=== PATIENT | male | born 1995 | race African-American/Black ===

== ENCOUNTER 2020-02-03 00:32 | Emergency (ER) | payer MEDICAID ==
[2020-02-03] MEDS ORDERED: Acetaminophen 500 MG Tab PO ONE (00:54)
[2020-02-03] MEDS ORDERED: Ibuprofen 800 MG Tab PO ONE (00:56)
--- NOTE | 2020-02-03 00:59 | EDM.PDOC ---
ED HPI GENERAL MEDICAL PROBLEM - General Stated Complaint: CHEST PAIN Time Seen by Provider: 02/03/20 00:35 Source of Information: Reports: Patient History Limitations: Reports: No Limitations - History of Present Illness INITIAL COMMENTS - FREE TEXT/NARRATIVE: Patient presented to the Ed because of chest wall pain. He apparently bumped his chest on the metal pole. He sustained abrasion over the sternal area and c/o left rib pain. Chest Pain Score (Numeric/FACES): 8 - Related Data Allergies Allergy/AdvReac Type Severity Reaction Status Date / Time No Known Allergies Allergy Verified 02/03/20 01:12 Home Meds: Home Meds Ibuprofen 800 mg PO Q8H PRN #30 tablet 02/03/20 [Rx] ED ROS GENERAL - Review of Systems Review Of Systems: See Below Constitutional: Reports: No Symptoms HEENT: Reports: No Symptoms Respiratory: Reports: No Symptoms Cardiovascular: Reports: Chest Pain Endocrine: Reports: No Symptoms GI/Abdominal: Reports: No Symptoms : Reports: No Symptoms Musculoskeletal: Reports: No Symptoms Skin: Reports: Bruising ED EXAM, GENERAL - Physical Exam Exam: See Below Exam Limited By: No Limitations General Appearance: Alert, No Apparent Distress Eye Exam: Bilateral Eye: PERRL Ears: Normal External Exam, Normal Canal Nose: Normal Inspection, Normal Mucosa, No Blood Throat/Mouth: Normal Inspection, Normal Lips, Normal Teeth Head: Atraumatic, Normocephalic Neck: Normal Inspection, Supple, Non-Tender, Full Range of Motion Respiratory/Chest: No Respiratory Distress, Lungs Clear, Normal Breath Sounds, Other (chest wall tenderness-left) Cardiovascular: Normal Peripheral Pulses, Regular Rate, Rhythm, No Edema GI/Abdominal: Normal Bowel Sounds, Soft, Non-Tender, No Organomegaly Back Exam: Normal Inspection, Full Range of Motion Extremities: Normal Inspection, Normal Range of Motion, Non-Tender Neurological: Alert, Oriented, CN II-XII Intact, Normal Cognition, Normal Gait Psychiatric: Normal Affect, Normal Mood Course - Vital Signs Text/Narrative:: Ibuprofen 800 mg with tylenol 1000 mg PO x1 Last Recorded V/S: Last Vital Signs Temp 36.7 C 02/03/20 01:47 Pulse 76 02/03/20 01:47 Resp 16 02/03/20 01:47 BP 105/62 02/03/20 01:47 Pulse Ox 97 02/03/20 01:47 - Orders/Labs/Meds Meds: Medications Discontinued Medications Generic Name Dose Route Start Last Admin Trade Name Ben PRN Reason Stop Dose Admin Acetaminophen 1,000 mg 02/03/20 00:54 02/03/20 01:03 Tylenol Extra Strength PO 02/03/20 00:55 1,000 mg ONETIME ONE Administration Ibuprofen 800 mg 02/03/20 00:56 02/03/20 01:03 Motrin PO 02/03/20 00:57 800 mg ONETIME ONE Administration Departure - Departure Time of Disposition: 01:30 Disposition: Home, Self-Care 01 Condition: Good Clinical Impression: Contusion of rib on left side, Chest wall contusion - Discharge Information Prescriptions: Ibuprofen 800 mg PO Q8H PRN #30 tablet PRN Reason: Pain Instructions: Rib Contusion Referrals: PCP,None [Primary Care Provider] - Forms: ED Department Discharge Additional Instructions: Please read discharge instructions on chest and rib contusion Aply ice 3 times daily Take ibuprofen 800 mg with tylenol 1000 mg every 8 hours as needed for pain We will call you if there's any change on your xray reading Follow up as needed Sepsis Event Note (ED) - Focused Exam Vital Signs: Vital Signs Temp Pulse Resp BP Pulse Ox 02/03/20 01:47 36.7 C 76 16 105/62 97 02/03/20 00:35 36.8 C 91 16 113/70 100
--- NOTE | 2020-02-03 10:14 | CR ---
INDICATION: Chest and rib injury. LEFT RIBS WITH CHEST: PA view of the chest with 9 views of the left ribs were obtained 02/03/20 - no comparison. The heart and mediastinum are unremarkable. An active infiltrate, effusion, contusion, or pneumothorax was not identified. A displaced fracture site or other significant abnormality was not identified. IMPRESSION: No acute process - no definite active disease. MTDD
== END 2020-02-03 02:13 | disposition home or self-care (01) ==
LOC: FB.ED 00:32
DX: S20.212A Contusion of left front wall of thorax, initial encounter (principal); W22.8XXA Striking against or struck by other objects, initial encounter
CPT/HCPCS: 71101; 99284; A9270

== ENCOUNTER 2020-04-02 21:38 | Emergency (ER) | payer MEDICAID ==
--- NOTE | 2020-04-02 22:00 | EDM.PDOC ---
ED HPI GENERAL MEDICAL PROBLEM - General Chief Complaint: Respiratory Problem Stated Complaint: SOB Time Seen by Provider: 04/02/20 21:50 Source of Information: Reports: Patient History Limitations: Reports: No Limitations - History of Present Illness INITIAL COMMENTS - FREE TEXT/NARRATIVE: has chest tightness and difficulty breathing for 3 days . denies that it is asthma symptoms , no fever no chill s states it progressively got worse till had had to come to the ER today Works in [employer] , has high probabillity of contacting in [place] he has lost his sense of taste and smell Onset: Today Onset Date: 04/02/20 Duration: Getting Worse Location: Reports: Chest Quality: Reports: Ache, Dull Severity: Moderate Improves with: Reports: None Worsens with: Reports: None Associated Symptoms: Reports: Chest Pain, Malaise - Related Data Allergies Allergy/AdvReac Type Severity Reaction Status Date / Time No Known Allergies Allergy Verified 02/03/20 01:12 Home Meds: Home Meds Ibuprofen 800 mg PO Q8H PRN #30 tablet 02/03/20 [Rx] Azithromycin [Zithromax] 500 mg PO DAILY #5 tab 04/02/20 [Rx] Zinc Gluconate [Zinc] 100 mg PO DAILY #60 tablet 04/02/20 [Rx] guaiFENesin [Mucinex] 600 mg PO BID #30 tab.er.12h 04/02/20 [Rx] Past Medical History Musculoskeletal History: Reports: Other (See Below) Other Musculoskeletal History: Sprained left foot Psychiatric History: Reports: Anxiety, Depression Social & Family History - Caffeine Use Caffeine Use: Reports: Energy Drinks, Tea ED ROS GENERAL - Review of Systems Review Of Systems: See Below Constitutional: Reports: No Symptoms, Chills, Malaise, Weakness. Denies: Fever HEENT: Reports: No Symptoms Respiratory: Reports: Shortness of Breath, Wheezing Cardiovascular: Reports: No Symptoms Endocrine: Reports: No Symptoms GI/Abdominal: Reports: No Symptoms Musculoskeletal: Reports: No Symptoms Skin: Reports: No Symptoms Neurological: Reports: No Symptoms ED EXAM, GENERAL - Physical Exam Exam: See Below Exam Limited By: No Limitations General Appearance: Alert, WD/WN, No Apparent Distress Eye Exam: Bilateral Eye: EOMI Ear Exam: Bilateral Ear: TM Dull Nose: Normal Mucosa Throat/Mouth: Normal Oropharynx Head: Atraumatic, Normocephalic Neck: Supple, Non-Tender Cardiovascular: Normal Peripheral Pulses, Regular Rate, Rhythm GI/Abdominal: Soft, Non-Tender Back Exam: Full Range of Motion Extremities: Normal Range of Motion Course - Vital Signs Last Recorded V/S: Last Vital Signs Temp 36.6 C 04/02/20 21:40 Pulse Resp BP Pulse Ox - Orders/Labs/Meds Orders: Active Orders 24 hr Category Date Time Status Sodium Chloride 0.9% [Saline Flush] Med 04/02/20 22:26 Active 10 ml FLUSH ASDIRECTED PRN Medication Orders Sodium Chloride (Saline Flush) 10 ml FLUSH ASDIRECTED PRN PRN Reason: Keep Vein Open Last Admin: 04/02/20 22:26 Dose: 10 ml Documented by: J CARLOS Labs: Laboratory Tests 04/02/20 Range/Units 21:55 SARS-CoV-2 RNA (SHAUNNA) Positive H (NEGATIVE) Meds: Medications Generic Name Dose Route Start Last Admin Trade Name Freq PRN Reason Stop Dose Admin Sodium Chloride 10 ml 04/02/20 22:26 04/02/20 22:26 Saline Flush FLUSH 10 ml ASDIRECTED PRN Administration Keep Vein Open Discontinued Medications Generic Name Dose Route Start Last Admin Trade Name Freq PRN Reason Stop Dose Admin Azithromycin 500 mg 04/02/20 22:12 04/02/20 22:27 Zithromax PO 04/02/20 22:13 500 mg ONETIME ONE Administration Dexamethasone 8 mg 04/02/20 22:11 04/02/20 22:26 Dexamethasone IVPUSH 04/02/20 22:12 8 mg ONETIME ONE Administration Departure - Departure Time of Disposition: 22:30 Disposition: Home, Self-Care 01 Clinical Impression: COVID-19, Acute bronchitis - Discharge Information *PRESCRIPTION DRUG MONITORING PROGRAM REVIEWED*: Not Applicable *COPY OF PRESCRIPTION DRUG MONITORING REPORT IN PATIENT MARTHA: Not Applicable Prescriptions: guaiFENesin [Mucinex] 600 mg PO BID #30 tab.er.12h Zinc Gluconate [Zinc] 100 mg PO DAILY #60 tablet Azithromycin [Zithromax] 500 mg PO DAILY #5 tab Instructions: COVID-19 Frequently Asked Questions, Acute Bronchitis, Adult, [id number] Referrals: PCP,None [Primary Care Provider] - Forms: ED Department Discharge Additional Instructions: 1) Quarantine for full 14 day s 2) Others at home need to have screening test done 3) If symptoms get worse call the clinic for further advise Sepsis Event Note (ED) - Focused Exam Vital Signs: Vital Signs Temp 04/02/20 21:40 36.6 C - My Orders Last 24 Hours: My Active Orders 04/02/20 22:26 Sodium Chloride 0.9% [Saline Flush] 10 ml FLUSH ASDIRECTED PRN - Assessment/Plan Last 24 Hours: My Active Orders 04/02/20 22:26 Sodium Chloride 0.9% [Saline Flush] 10 ml FLUSH ASDIRECTED PRN
[2020-04-02] MEDS ORDERED: Dexamethasone 4 MG/ML 5 ML MDV IVPUSH ONE (22:11)
[2020-04-02] MEDS ORDERED: Azithromycin 500 MG Tab PO ONE (22:12)
[2020-04-02] MEDS ORDERED: Sodium Chloride 0.9% 10 ML Syringe FLUSH PRN (22:26)
== END 2020-04-02 23:50 | disposition home or self-care (01) ==
LOC: FB.ED 21:38
DX: U07.1 COVID-19 (principal); J20.8 Acute bronchitis due to other specified organisms
CPT/HCPCS: 96374; 99284-25; A9270-GY; J1100; U0002

== ENCOUNTER → 2020-06-25 21:45 | Emergency (ER) | payer MEDICAID ==
--- NOTE | 2020-06-25 23:04 | EDM.PDOCBH ---
ED HPI GENERAL MEDICAL PROBLEM - General Chief Complaint: Behavioral/Psych Stated Complaint: Depressed, Cut self Time Seen by Provider: 06/25/20 22:10 Source of Information: Reports: Patient History Limitations: Reports: No Limitations - History of Present Illness INITIAL COMMENTS - FREE TEXT/NARRATIVE: presents complaining he is depressed . has a lot of stress that has been ongoing , lost his job , was affected with COVID . Ended up cutting himself. Denies being suicidal states he has never been on antidepressant Was on Adderall for ADHD but stopped taking the medication about 3-4 yrs ago Feels he needs it currently moved from the [place] to live her with sister States he misses his family in the [place] Onset: Today Duration: Waxing/Waning Location: Reports: Generalized Quality: Reports: Ache Improves with: Reports: None Worsens with: Reports: None Associated Symptoms: Reports: No Other Symptoms - Related Data Allergies Allergy/AdvReac Type Severity Reaction Status Date / Time No Known Allergies Allergy Verified 06/25/20 22:09 Home Meds: Home Meds Dextroamphetamine/Amphetamine [Adderall 20 mg Tablet] 20 mg PO DAILY #30 tablet 06/25/20 [Rx] Past Medical History Musculoskeletal History: Reports: Other (See Below) Other Musculoskeletal History: Sprained left foot Psychiatric History: Reports: Anxiety, Depression - Infectious Disease History Infectious Disease History: Reports: Other (See Below) Other Infectious Disease History: COVID positive--March 2020. Social & Family History - Caffeine Use Caffeine Use: Reports: Energy Drinks, Tea ED ROS GENERAL - Review of Systems Review Of Systems: Comprehensive ROS is negative, except as noted in HPI. ED EXAM, BEHAVIORAL HEALTH - Physical Exam Exam: See Below Exam Limited By: No Limitations General Appearance: Alert, WD/WN, No Apparent Distress Nose: Normal Inspection Throat/Mouth: Normal Inspection Head: Atraumatic, Normocephalic Neck: Supple, Non-Tender Respiratory/Chest: Lungs Clear, Normal Breath Sounds Cardiovascular: Normal Peripheral Pulses, Regular Rate, Rhythm GI/Abdominal: Soft, Non-Tender Back Exam: Full Range of Motion Extremities: Normal Inspection, Normal Range of Motion, Normal Capillary Refill Neurological: Alert, Normal Mood/Affect, CN II-XII Intact Psychiatric: Alert, Depressed Mood, Flat Affect, Withdrawn. No: Agitated, Disoriented, Inattentive, Poor Eye Contact, Homicidal Thoughts, Suicidal Plan, Suicidal Thoughts, Auditory Hallucinations, Visual Hallucinations Skin Exam: Warm, Dry, Intact, Normal color, No rash COURSE, BEHAVIORAL HEALTH COMP - Course Vital Signs: Last Vital Signs Temp 36.9 C 06/25/20 22:05 Pulse 89 06/25/20 22:05 Resp 18 06/25/20 22:05 BP 144/89 H 06/25/20 22:05 Pulse Ox 99 06/25/20 22:05 Re-Assessment/Re-Exam: pt seemed rational ans was able to identify cause of problems will restart ADHD medication , FU with PCP pt is not on antidepressants, has never been on Departure - Departure Time of Disposition: 22:50 Disposition: Home, Self-Care 01 Condition: Fair Clinical Impression: ADHD, predominantly hyperactive type, Self-harm - Discharge Information *PRESCRIPTION DRUG MONITORING PROGRAM REVIEWED*: Not Applicable *COPY OF PRESCRIPTION DRUG MONITORING REPORT IN PATIENT MARTHA: Not Applicable Prescriptions: Dextroamphetamine/Amphetamine [Adderall 20 mg Tablet] 20 mg PO DAILY #30 tablet Instructions: Living With Attention Deficit Hyperactivity Disorder, Attention Deficit Hyperactivity Disorder, Adult Referrals: PCP,None [Primary Care Provider] - Forms: ED Department Discharge Additional Instructions: Make appointment to follow up with a primary care provider Sepsis Event Note (ED) - Focused Exam Vital Signs: Vital Signs Temp Pulse Resp BP Pulse Ox 06/25/20 22:05 36.9 C 89 18 144/89 H 99
== END | disposition home or self-care (01) ==
LOC: FB.ED 21:45
DX: F90.1 Attention-deficit hyperactivity disorder, predominantly hyperactive type (principal); Z79.899 Other long term (current) drug therapy
CPT/HCPCS: 99284

== ENCOUNTER 2020-10-18 17:13 | Emergency (ER) | payer MEDICAID ==
--- NOTE | 2020-10-18 17:21 | EDM.PDOCBH ---
ED HPI GENERAL MEDICAL PROBLEM - General Stated Complaint: ?? Time Seen by Provider: 10/18/20 17:13 Source of Information: Reports: Patient History Limitations: Reports: No Limitations - History of Present Illness INITIAL COMMENTS - FREE TEXT/NARRATIVE: c/o SI pt went to clinic, saw Dr Nayak and social work therapist, said he was suicidal for the past month and wanted to be admitted no beh health admission in past pt had a knife which he gave to EMS who brought him to ED, said he did not feel safe Dr Nayak spoke with [facility] who said that they have beds open and that pt would need to get psych labs done, Dr Nayak sent pt by EMS from clinic to ED pt has h/o ADHD, has done self cutting in past he had COVID 7m ago with a positive COVID test on 04-02-20 last fill of Adderall 20 mg #30 was 06-25-[address] Russell pt reports he cut his LUE in [place] yestesrday after getting in an argument says he has been thinking about a lot, "under a lot of stress", that he had 3 friends that (one by intentional OD, one by unintentional OD, one in [place] under mysterious circumstances), his GM has he went to in [facility], left the city 8m ago and stayed with his sister locally, got his own apartment 5m ago, works at [employer], does not like to work 3p to 11p, says it is too much responsibility to close, that he has to follow a lot of steps and then keep the verdugo to the next day, that he loses his own keys and does not trust himself he used Ecstasy in past, stopped age 19, stopped street drugs age 19, occasional THC, occasional alc, smokes cigs not worked with counselor in past, no previous behavioral health admissions - Related Data Allergies Allergy/AdvReac Type Severity Reaction Status Date / Time No Known Allergies Allergy Verified 06/25/20 22:09 Home Meds: Home Meds Dextroamphetamine/Amphetamine [Adderall 20 mg Tablet] 20 mg PO DAILY #30 tablet 06/25/20 [Rx] Past Medical History Musculoskeletal History: Reports: Other (See Below) Other Musculoskeletal History: Sprained left foot. Psychiatric History: Reports: ADHD, Anxiety, Depression - Infectious Disease History Infectious Disease History: Reports: Other (See Below) Other Infectious Disease History: COVID positive--March 2020. Social & Family History - Caffeine Use Caffeine Use: Reports: Energy Drinks, Tea ED ROS GENERAL - Review of Systems Review Of Systems: See Below Constitutional: Reports: No Symptoms HEENT: Reports: No Symptoms Respiratory: Reports: No Symptoms Cardiovascular: Reports: No Symptoms Endocrine: Reports: No Symptoms GI/Abdominal: Reports: No Symptoms : Reports: No Symptoms Musculoskeletal: Reports: No Symptoms Skin: Reports: No Symptoms Neurological: Reports: No Symptoms Psychiatric: Reports: No Symptoms Hematologic/Lymphatic: Reports: No Symptoms Immunologic: Reports: No Symptoms ED EXAM, BEHAVIORAL HEALTH - Physical Exam Exam: See Below Exam Limited By: No Limitations General Appearance: Alert, WD/WN Eye Exam: Bilateral Eye: EOMI, PERRL Ears: Hearing Grossly Normal Nose: Normal Inspection, Normal Mucosa, No Blood Throat/Mouth: Normal Inspection, Normal Lips, Normal Voice, No Airway Compromise Head: Atraumatic, Normocephalic Neck: Normal Inspection, Supple, Non-Tender, Full Range of Motion. No: Lymph adenopathy (R), Lymphadenopathy (L) Respiratory/Chest: No Respiratory Distress, Lungs Clear, Normal Breath Sounds, No Accessory Muscle Use Cardiovascular: Regular Rate, Rhythm, No Edema, No Murmur GI/Abdominal: Soft, Non-Tender, No Distention Extremities: Normal Inspection, Normal Range of Motion, Non-Tender Neurological: Alert, CN II-XII Intact, Normal Gait, No Motor/Sensory Deficits Psychiatric: Alert. No: Other (pt says he thinks re dying, no plan, loquacious, limited insight, no HI) Skin Exam: Warm, Dry, Other (3 superficial cuts on outside of right forearm, one old deeper cut with 4mm wide scar from age 19) COURSE, BEHAVIORAL HEALTH COMP - Course Vital Signs: Last Vital Signs Temp 36.7 C 10/18/20 17:25 Pulse 70 10/18/20 17:25 Resp 16 10/18/20 17:25 BP 115/80 10/18/20 17:25 Pulse Ox 95 10/18/20 17:25 Orders, Labs, Meds: Active Orders 24 hr Category Date Time Status DRUG SCREEN, URINE ALERE [URCHEM] Stat Lab 10/18/20 17:16 Ordered UA W/MICROSCOPIC [URIN] Stat Lab 10/18/20 17:16 Ordered Laboratory Tests 10/18/20 10/18/20 10/18/20 Range/Units 17:27 17:27 17:27 WBC 5.0 (3.2-10.1) x10-3/uL RBC 5.67 (3.90-5.90) x10(6)uL Hgb 17.2 (12.9-17.7) g/dL Hct 50.7 H (38.3-50.1) % MCV 89.5 (80.8-98.7) fL MCH 30.4 (27.0-33.3) pg MCHC 34.0 (28.7-35.3) g/dL RDW 13.9 (12.4-15.0) % Plt Count 206 (117-477) x10(3)uL MPV 9.5 (6.7-11.0) fL Neut % (Auto) 42.7 (40.3-71.8) % Lymph % (Auto) 34.0 (15.8-45.3) % [place] % (Auto) 15.2 (5.5-15.2) % Eos % (Auto) 7.6 H (0.1-6.8) % Baso % (Auto) 0.5 (0.3-3.8) % Neut # (Auto) 2.1 (1.7-6.9) x10-3/uL Lymph # (Auto) 1.7 (0.5-4.5) x10-3/uL [place] # (Auto) 0.8 (0.0-1.2) x10-3/uL Eos # (Auto) 0.4 (0.0-0.6) x10-3/uL Baso # (Auto) 0.0 (0.0-0.3) x10-3/uL Sodium 142 (135-145) mmol/L Potassium 4.1 (3.5-5.3) mmol/L Chloride 99 L (100-110) mmol/L Carbon Dioxide 32 (21-32) mmol/L BUN 10 (7-18) mg/dL Creatinine 1.2 (0.70-1.30) mg/dL Est Cr Clr Drug Dosing 75.51 mL/min Estimated GFR (MDRD) > 60 (>60) BUN/Creatinine Ratio 8.3 L (9-20) Glucose 79 L (80-116) mg/dL Calcium 9.4 (8.6-10.2) mg/dL Total Bilirubin 2.2 H (0.1-1.3) mg/dL AST 14 (5-25) IU/L ALT 16 (12-36) U/L Alkaline Phosphatase 69 (56-112) IU/L Total Protein 8.5 H (6.0-8.0) g/dL Albumin 4.3 (3.5-5.2) g/dL Globulin 4.2 g/dL Albumin/Globulin Ratio 1.0 TSH, Ultra Sensitive 0.24 L (0.36-3.74) IU/mL Salicylates < 2.8 L (<2.8) mg/dL Acetaminophen < 2 L (<2) ug/mL Ethyl Alcohol < 0.03 (<0.03) % SARS-CoV-2 RNA (SHAUNNA) (NEGATIVE) 10/18/20 Range/Units 18:20 WBC (3.2-10.1) x10-3/uL RBC (3.90-5.90) x10(6)uL Hgb (12.9-17.7) g/dL Hct (38.3-50.1) % MCV (80.8-98.7) fL MCH (27.0-33.3) pg MCHC (28.7-35.3) g/dL RDW (12.4-15.0) % Plt Count (117-477) x10(3)uL MPV (6.7-11.0) fL Neut % (Auto) (40.3-71.8) % Lymph % (Auto) (15.8-45.3) % [place] % (Auto) (5.5-15.2) % Eos % (Auto) (0.1-6.8) % Baso % (Auto) (0.3-3.8) % Neut # (Auto) (1.7-6.9) x10-3/uL Lymph # (Auto) (0.5-4.5) x10-3/uL [place] # (Auto) (0.0-1.2) x10-3/uL Eos # (Auto) (0.0-0.6) x10-3/uL Baso # (Auto) (0.0-0.3) x10-3/uL Sodium (135-145) mmol/L Potassium (3.5-5.3) mmol/L Chloride (100-110) mmol/L Carbon Dioxide (21-32) mmol/L BUN (7-18) mg/dL Creatinine (0.70-1.30) mg/dL Est Cr Clr Drug Dosing mL/min Estimated GFR (MDRD) (>60) BUN/Creatinine Ratio (9-20) Glucose (80-116) mg/dL Calcium (8.6-10.2) mg/dL Total Bilirubin (0.1-1.3) mg/dL AST (5-25) IU/L ALT (12-36) U/L Alkaline Phosphatase (56-112) IU/L Total Protein (6.0-8.0) g/dL Albumin (3.5-5.2) g/dL Globulin g/dL Albumin/Globulin Ratio TSH, Ultra Sensitive (0.36-3.74) IU/mL Salicylates (<2.8) mg/dL Acetaminophen (<2) ug/mL Ethyl Alcohol (<0.03) % SARS-CoV-2 RNA (SHAUNNA) Negative (NEGATIVE) Discharge vs Psych Eval/Treatment:: 10/18/20 17:51 pt seeking help, was seen in ED here 4m ago and ED physician Rx 30 tabs of Adderall, had wanted a refill in clinic today but sent to ED d/t cuts on arm and labile mood 10/18/20 19:33 pt spoke with Marissa, elsi on voluntary basis for behavioral health pending, care transferred at 19:[address] Donovan at change of shift Departure - Departure Time of Disposition: 19:33 Disposition: DC/Tfer to Psych Hosp/Unit 65 Condition: Fair Clinical Impression: Deliberate self-cutting, Labile mood, ADHD - Discharge Information *PRESCRIPTION DRUG MONITORING PROGRAM REVIEWED*: Not Applicable *COPY OF PRESCRIPTION DRUG MONITORING REPORT IN PATIENT MARTHA: Not Applicable Sepsis Event Note (ED) - Focused Exam Vital Signs: Vital Signs Temp Pulse Resp BP Pulse Ox 10/18/20 17:25 36.7 C 70 16 115/80 95 - My Orders Last 24 Hours: My Active Orders 10/18/20 17:16 DRUG SCREEN, URINE ALERE [URCHEM] Stat UA W/MICROSCOPIC [URIN] Stat - Assessment/Plan Last 24 Hours: My Active Orders 10/18/20 17:16 DRUG SCREEN, URINE ALERE [URCHEM] Stat UA W/MICROSCOPIC [URIN] Stat
[2020-10-18 17:44] LABS: ACETAMINOPHEN < 2 ug/mL (<2)
== END 2020-10-18 22:16 | disposition home or self-care (01) ==
LOC: FB.ED 17:13
DX: F90.9 Attention-deficit hyperactivity disorder, unspecified type (principal); S51.811A Laceration without foreign body of right forearm, initial encounter; Z20.822 Contact with and (suspected) exposure to COVID-19; Z86.16 Personal history of COVID-19; X78.1XXA Intentional self-harm by knife, initial encounter
CPT/HCPCS: 36415; 80053; 80143; 80179; 80305-QW; 80307; 81001; 84443; 85025; 99285; U0002